=== PATIENT | female | born 1990 | race Hispanic/Latino ===

== ENCOUNTER 2017-10-26 12:03 | Emergency (ER) | payer MEDICAID ==
[2017-10-26] MEDS ORDERED: MARCAINE 0.5% INFILTRATI ONE (17:26)
[2017-10-26] MEDS ORDERED: MOTRIN PO ONE (17:27)
[2017-10-26] MEDS ORDERED: BOOSTRIX IM ONE (17:27)
[2017-10-26] MEDS ORDERED: CLEOCIN IM ONE (17:29)
--- NOTE | 2017-10-26 17:36 | Emergency Department Report ---
Abscess Boil HPI - HPI Chief Complaint: Skin/Abscess/Foreign Body Stated Complaint: NECK PAIN Time Seen by Provider: 10/26/17 16:31 Duration: 3 Days Location: Other (posterior neck region) History: Yes Pain, No Fever, No Purulent Drainage, No Numbness, No Foreign Body , No Previous History, No Insect Bite HPI: This is a 27-year-old female nontoxic, well nourished in appearance, no acute signs of distress presents to the ED with c/o of abscess and redness to the right posterior neck region. Patient stated it stated small and became bigger over 3 days. Patient denies any stiff neck, nausea, vomiting, headache, chest pain, shortness of breathe, blurry vision, numbness or tingling. Patient denies any drug allergies or PMH. Denies any trauma. Patient stated is not up to date with tetanus. Home Medications: Previous Rx's Medication Instructions Recorded Last Taken Type Hydrocodone Bit/Acetaminophen 1 each PO Q8H PRN #20 tablet 08/25/13 Unknown Rx [Lortab 7.5-500 mg] Amoxicillin [Trimox CAP] 500 mg PO Q8H #30 capsule 01/29/14 Unknown Rx HYDROcodone/APAP 7.5-325 [[place] 1 each PO Q6HR PRN #14 tablet 01/29/14 Unknown Rx 7.5-325 mg TAB] Cyclobenzaprine [Flexeril 10mg] 10 mg PO TID PRN #30 tablet 04/07/15 Unknown Rx HYDROcodone/APAP 5-325 [[place] 1 each PO Q6HR PRN #20 tablet 04/07/15 Unknown Rx 5/325] Ibuprofen [Motrin 800 MG tab] 800 mg PO TID PRN #50 tablet 04/07/15 Unknown Rx Clindamycin [Clindamycin CAP] 300 mg PO Q8H 7 Days cap 10/26/17 Unknown Rx traMADol [Ultram] 50 mg PO Q6HR PRN #12 tablet 10/26/17 Unknown Rx Allergies/Adverse Reactions: Allergies Allergy/AdvReac Type Severity Reaction Status Date / Time Fish Containing Products Allergy Itching Verified 10/26/17 12:10 ED Review of Systems ROS: Stated complaint: NECK PAIN Other details as noted in HPI Constitutional: denies: chills, fever Eyes: denies: eye pain, eye discharge, vision change ENT: denies: ear pain, throat pain Respiratory: denies: cough, shortness of breath, wheezing Cardiovascular: denies: chest pain, palpitations Endocrine: no symptoms reported Gastrointestinal: denies: abdominal pain, nausea, diarrhea Genitourinary: denies: urgency, dysuria, discharge Musculoskeletal: denies: back pain, joint swelling, arthralgia Skin: denies: rash, lesions Neurological: denies: headache, weakness, paresthesias Psychiatric: denies: anxiety, depression Hematological/Lymphatic: denies: easy bleeding, easy bruising ED Past Medical Hx - Past Medical History Previous Medical History?: No Additional medical history: Gall bladder disease - Surgical History Past Surgical History?: No - Social History Smoking Status: Never Smoker Substance Use Type: Alcohol, Marijuana - Medications Home Medications: Home Medications Medication Instructions Recorded Confirmed Last Taken Type Hydrocodone Bit/Acetaminophen 1 each PO Q8H PRN #20 tablet 08/25/13 Unknown Rx [Lortab 7.5-500 mg] Amoxicillin [Trimox CAP] 500 mg PO Q8H #30 capsule 01/29/14 Unknown Rx HYDROcodone/APAP 7.5-325 [[place] 1 each PO Q6HR PRN #14 tablet 01/29/14 Unknown Rx 7.5-325 mg TAB] Cyclobenzaprine [Flexeril 10mg] 10 mg PO TID PRN #30 tablet 04/07/15 Unknown Rx HYDROcodone/APAP 5-325 [[place] 1 each PO Q6HR PRN #20 tablet 04/07/15 Unknown Rx 5/325] Ibuprofen [Motrin 800 MG tab] 800 mg PO TID PRN #50 tablet 04/07/15 Unknown Rx Clindamycin [Clindamycin CAP] 300 mg PO Q8H 7 Days cap 10/26/17 Unknown Rx traMADol [Ultram] 50 mg PO Q6HR PRN #12 tablet 10/26/17 Unknown Rx ED Abscess Boil Physical Exam - Exam General: Vital signs noted. No distress. Alert and acting appropriately. GENERAL: The patient is a well-developed, well-nourished in no apparent distress. Patient is alert and acting appropriately for age. Alert and oriented 3, no apparent distress, normal gait, atraumatic. HEENT: Head is normocephalic and atraumatic. PERRL, Extraocular muscles are intact. Pupils are equal, round, and reactive to light and accommodation. Nares appeared normal. Mouth is well hydrated and without lesions. Mucous membranes are moist. Posterior pharynx clear of any exudate or lesions. Mouth is well hydrated and without lesions. Tonsils not erythematous or swollen. Uvula midline. Tongue elevated. Mucous members are moist. Posterior pharynx clear, no exudate or lesions. Patent airways. NECK: Supple. No carotid bruits. No lymphadenopathy or thyromegaly.nontender. No meningitic signs are noted. LUNGS: Clear to auscultation. Non labor breathing. No intercostal retractions. Symmetrical with respiration, no wheezing, no rales, or crackles. HEART: Regular rate and rhythm without murmur, rubs or gallops. No reproducible. S1, S2 present, regular rate and rhythm without murmur, no rubs, no gallops. ABDOMEN: Soft, nontender, and nondistended. Positive bowel sounds. No hepatosplenomegaly was noted. No guarding or rebound tenderness, negative epigastric bruit. Negative psoas sign, negative carroll sign, negative McBurneys sign EXTREMITIES: Without any cyanosis, clubbing, rash, lesions or edema. Peripheral pulses intact. Capillary refill less than 2 seconds. Full range of motion bilaterally. NEUROLOGIC: Cranial nerves II through XII are grossly intact. Alert and oriented x 3. Normal gait. Symmetrical strength and sensation. Reflexes 2+ throughout. Cerebellar testing normal. GCS score of 15. PSYCHIATRIC: Normal affect with no suicidal or homicidal ideations. Skin: 3 cm abscess with positive induration or fluctuance. Surrounding erythema. Tender to touch. No pus or drainage noted. Front/Back of Body, Lg (Color): 1 - abscess Size: 3 cm Exam: Yes Tenderness, Yes Fluctuance, Yes Surrounding Cellulites/Erythema, Yes Normal Neurologic Exam, Yes Normal Circulation, No Lymphangitis, No Crepitation , No Heart Murmur I & D Note - I & D Note I & D Note: Under sterile field, I used Betadine to cleanse the area. I then used 0.5% Marcaine with 25-gauge 5/8 needle to inject area for anesthetic purposes. Total volume injected 3 mL. I then used an 11 blade to make a 1 cm incision. About 2 mL's of purulent drainage has been noted. I then used a hemostat to break the abscess formation. I then used sterile 0.9% normal saline flush to flush the wound with total volume of 40 mL used. I then put a 1 /4 iodoform packing to the incision. A sterile 4 x 4 with tape has been applied as dressing. Bleeding is under control. Patient tolerated the procedure well with no signs of distress noted. ED Course Vital Signs 10/26/17 12:10 Temperature 98 F Pulse Rate 93 H Respiratory 20 Rate Blood Pressure 138/82 O2 Sat by Pulse 97 Oximetry - Reevaluation(s) Reevaluation #1: 10/26/17 17:34 Patient is speaking in full sentences with no signs of distress noted. Critical care attestation.: If time is entered above; I have spent that time in minutes in the direct care of this critically ill patient, excluding procedure time. ED Medical Decision Making - Medical Decision Making This is a 27-year-old female that presents with abscess. PAtient is stable and was examined by me. Incision and drainage has been performed and patient tolerated well with no signs of distress. One fourth packing has been placed and patient was instructed to return in 2 days for reassessment and packing removal. Patient received a dose of 600 milligrams clindamycin IM due to the region site of the abscess. Patient is discharged with clinda. Patient was instructed Follow-up with a primary care doctor in 3-5 days or if symptoms worsen and continue return to emergency room as soon as possible. At time time of discharge, the patient does not seem toxic or ill in appearance. No acute signs of distress noted. Patient agrees to discharge treatment plan of care. No further questions noted by the patient. ED Disposition Clinical Impression: Abscess, Encounter for incision and drainage procedure Disposition: TO HOME OR SELFCARE Is pt being admited?: No Does the pt Need Aspirin: No Condition: Stable Instructions: Clindamycin (By mouth), Tramadol (By mouth), Abscess (ED), Incision and Drainage (ED) Additional Instructions: Follow-up with a primary care doctor in 3-5 days or if symptoms worsen and continue return to emergency room as soon as possible. Return in 2 days for packing removal and reassessment of the abscess. Do not operate any machinery while taking Ultram due to drowsiness. Prescriptions: Clindamycin [Clindamycin CAP] 300 mg PO Q8H 7 Days cap traMADol [Ultram] 50 mg PO Q6HR PRN #12 tablet PRN Reason: Pain Referrals: PRIMARY CARE, [Primary Care Provider] - 3-5 Days [facility]KER MD [Staff Physician] - 3-5 Days [facility] [Outside] - 3-5 Days [facility] [Outside] - 3-5 Days Forms: Work/School Release Form(ED)
[2017-10-26 18:34] VITALS: BP 122/68
== END 2017-10-26 18:35 | disposition home or self-care (01) ==
LOC: ED 12:03
DX: L02.11 Cutaneous abscess of neck (principal); F12.10 Cannabis abuse, uncomplicated; Z91.013 Allergy to seafood
CPT/HCPCS: 90471; 90715; 96372

== ENCOUNTER 2019-01-05 00:26 | Emergency (ER) | payer SELFPAY ==
[2019-01-05 00:58] VITALS: BP 128/92
[2019-01-05 02:06] LABS: Bacteria,Urine 1+ /HPF (Negative); Bilirubin,Urine NEG (Negative); Blood,Urine NEG (Negative); Color,Urine Yellow (Yellow); Mucus,Urine FEW /HPF; Protein,Urine <15 mg/dL mg/dL (Negative); Urobilinogen,Urine < 2.0 mg/dL (<2.0)
== END 2019-01-05 05:08 | disposition left against medical advice (07) ==
LOC: ED 00:26
DX: N93.9 Abnormal uterine and vaginal bleeding, unspecified (principal); Z53.21 Procedure and treatment not carried out due to patient leaving prior to being seen by health care provider
CPT/HCPCS: 81001

== ENCOUNTER 2019-10-25 02:53 | Emergency (ER) | payer MEDICAID ==
[2019-10-25 03:01] VITALS: BP 131/89
--- NOTE | 2019-10-25 09:20 | Emergency Department Report ---
ED Recheck HPI - General Chief Complaint: Laceration/Recheck/Suture Stated Complaint: POST C SECTION W/REDNESS AND DRAINAGE INCISION Time Seen by Provider: 10/25/19 09:14 Source: patient Mode of arrival: Ambulatory Limitations: No Limitations - History of Present Illness Initial Comments: 29 yo comes to ER with concerns her csec lac is infected. She had csec at [place] 1 week ago. She is alone in ER. No fever. VSS. no tachycardia. no hypotension. She did not call her obgyn- she has been waiting in ER all night to be seen. Complaint: wound re-check -: Gradual Initial Visit For: other Returns Today for: wound recheck - Related Data Previous Rx's Medication Instructions Recorded Last Taken Type Hydrocodone Bit/Acetaminophen 1 each PO Q8H PRN #20 tablet 08/25/13 Unknown Rx [Lortab 7.5-500 mg] Amoxicillin [Trimox CAP] 500 mg PO Q8H #30 capsule 01/29/14 Unknown Rx HYDROcodone/APAP 7.5-325 [[place] 1 each PO Q6HR PRN #14 tablet 01/29/14 Unknown Rx 7.5-325 mg TAB] Cyclobenzaprine [Flexeril 10mg] 10 mg PO TID PRN #30 tablet 04/07/15 Unknown Rx HYDROcodone/APAP 5-325 [[place] 1 each PO Q6HR PRN #20 tablet 04/07/15 Unknown Rx 5/325] Ibuprofen [Motrin 800 MG tab] 800 mg PO TID PRN #50 tablet 04/07/15 Unknown Rx Clindamycin [Clindamycin CAP] 300 mg PO Q8H 7 Days cap 10/26/17 Unknown Rx traMADoL [Ultram] 50 mg PO Q6HR PRN #12 tablet 10/26/17 Unknown Rx Allergies Allergy/AdvReac Type Severity Reaction Status Date / Time Fish Containing Products Allergy Itching Verified 10/26/17 12:10 ED Review of Systems ROS: Stated complaint: POST C SECTION W/REDNESS AND DRAINAGE INCISION Other details as noted in HPI Comment: All other systems reviewed and negative ED Past Medical Hx - Past Medical History Previous Medical History?: Yes Additional medical history: Gall bladder disease - Surgical History Past Surgical History?: Yes Additional Surgical History: - Family History Family history: no significant - Social History Smoking Status: Never Smoker Substance Use Type: Marijuana - Medications Home Medications: Home Medications Medication Instructions Recorded Confirmed Last Taken Type Hydrocodone Bit/Acetaminophen 1 each PO Q8H PRN #20 tablet 08/25/13 Unknown Rx [Lortab 7.5-500 mg] Amoxicillin [Trimox CAP] 500 mg PO Q8H #30 capsule 01/29/14 Unknown Rx HYDROcodone/APAP 7.5-325 [[place] 1 each PO Q6HR PRN #14 tablet 01/29/14 Unknown Rx 7.5-325 mg TAB] Cyclobenzaprine [Flexeril 10mg] 10 mg PO TID PRN #30 tablet 04/07/15 Unknown Rx HYDROcodone/APAP 5-325 [[place] 1 each PO Q6HR PRN #20 tablet 04/07/15 Unknown Rx 5/325] Ibuprofen [Motrin 800 MG tab] 800 mg PO TID PRN #50 tablet 04/07/15 Unknown Rx Clindamycin [Clindamycin CAP] 300 mg PO Q8H 7 Days cap 10/26/17 Unknown Rx traMADoL [Ultram] 50 mg PO Q6HR PRN #12 tablet 10/26/17 Unknown Rx ED Physical Exam - General Limitations: No Limitations General appearance: alert, in no apparent distress - Head Head exam: Present: atraumatic, normocephalic - Eye Eye exam: Present: normal appearance - ENT ENT exam: Present: mucous membranes moist - Neck Neck exam: Present: normal inspection - Respiratory Respiratory exam: Present: normal lung sounds bilaterally. Absent: respiratory distress - Cardiovascular Cardiovascular Exam: Present: regular rate, normal rhythm. Absent: systolic murmur, diastolic murmur, rubs, gallop - GI/Abdominal GI/Abdominal exam: Present: soft, normal bowel sounds - Extremities Exam Extremities exam: Present: normal inspection - Back Exam Back exam: Present: normal inspection - Neurological Exam Neurological exam: Present: alert, oriented X3 - Psychiatric Psychiatric exam: Present: normal affect, normal mood - Skin Skin exam: Present: warm, dry, intact, normal color, other (csec inscision - no abscess; no cellulitis; no unusual redness; no drainage. ). Absent: rash ED Course Vital Signs 10/25/19 03:00 Temperature 98.6 F Pulse Rate 68 Respiratory 18 Rate Blood Pressure 131/89 [Right] O2 Sat by Pulse 96 Oximetry ED Recheck MDM - Core Measures Measure Exclusions: not indicated - Differential Diagnosis Wound Recheck - Medical Decision Making wound is approx 8 inch clean well approximated no abscess/cellulitis no drainage What pt is concerned about is related to her not cleaning and keep the area dry. The incision is between fat folds and is moist. Wound cleaned- dried I've instructed pt on wound care. She is being dc from ER and will follow up with her OB at [place] Vital Signs 10/25/19 03:00 Temperature 98.6 F Pulse Rate 68 Respiratory 18 Rate Blood Pressure 131/89 [Right] O2 Sat by Pulse 96 Oximetry Critical care attestation.: If time is entered above; I have spent that time in minutes in the direct care of this critically ill patient, excluding procedure time. ED Disposition Clinical Impression: Incisional pain Disposition: DC-01 TO HOME OR SELFCARE Is pt being admited?: No Does the pt Need Aspirin: No Condition: Stable Additional Instructions: KEEP CLEAN WE DISCUSSED FOLLOW UP WITH THE [facility] IN THE OFFICE CALL AND MAKE AN APPNT Referrals: PRIMARY CARE [Primary Care Provider] - 3-5 Days Time of Disposition: 09:23
== END 2019-10-25 09:44 | disposition home or self-care (01) ==
LOC: ED 02:53
DX: O90.0 Disruption of cesarean delivery wound (principal); Z79.899 Other long term (current) drug therapy; F12.10 Cannabis abuse, uncomplicated; Z91.013 Allergy to seafood
CPT/HCPCS: 99282

== ENCOUNTER 2020-08-22 05:10 | Emergency (ER) | payer MEDICAID ==
--- NOTE | 2020-08-22 08:38 | Ultrasound Report ---
ULTRASOUND OBSTETRIC INDICATION / CLINICAL INFORMATION: ABD CRAMPING. Clinical Gestational Age (GA) in weeks, days: 14 weeks 4 days TECHNIQUE: Transabdominal. COMPARISON: None available. FINDINGS: GESTATIONAL SAC: Well-defined oval shape and intrauterine in location. YOLK SAC: No significant abnormality. EMBRYO/FETUS: No significant abnormality. - [place]-Rump Length = 7.78 cm = 13 weeks, 6 days - Heart Rate, beats per minute (if present) = 155 ADNEXA: 2 adjacent simple cysts are seen in the left ovary measuring 2.9 and 2.1 cm respectively. Rig ht ovary is unremarkable. FREE FLUID: None. ADDITIONAL FINDINGS: Some is located anteriorly. There is a hypoechoic nonvascular area posterior to the placenta of uncertain clinical significance. This area measures 2.2 x 1.0 cm. IMPRESSION: 1. Single, living intrauterine with estimated sonographic age of 13 weeks, 6 days. 2. 2.2 cm hypoechoic area posterior to the placenta without associated vascularity, nonspecific in ap pearance. Small area of abruption is within the differential and close clinical follow-up is suggeste d. Line 3. 2 small left ovarian cysts. Signer Name: Keerthi Keller MD Signed: 08/22/2020 7:10 AM Workstation Name: [email or web address]
[2020-08-22 12:01] VITALS: BP 114/69
--- NOTE | 2020-08-22 12:02 | Emergency Department Report ---
ED Abdominal Pain HPI - General Chief Complaint: Abdominal Pain Stated Complaint: 12WKS PREG/CRAMPING Time Seen by Provider: 08/22/20 10:57 Source: patient Mode of arrival: Ambulatory Limitations: No Limitations - History of Present Illness Initial Comments: Patient is a 30-year-old female presents emergency room with complaints of lower abdominal pain that began last night. She describes it as a cramping sensation. She states that she has had it intermittently throughout her . She states that she is approximately 3-1/2 to 4 months . 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 She denies any dysuria, dark urine, odor to her urine, hematuria, vaginal bleeding, vaginal discharge, vaginal irritation or itching, nausea, vomiting, diarrhea, fever. She has a past medical history of cholelithiasis. No allergies to medications. /P: 3/A: 1 - Related Data Previous Rx's Medication Instructions Recorded Last Taken Type Hydrocodone Bit/Acetaminophen 1 each PO Q8H PRN #20 tablet 08/25/13 Unknown Rx [Lortab 7.5-500 mg] Amoxicillin [Trimox CAP] 500 mg PO Q8H #30 capsule 01/29/14 Unknown Rx HYDROcodone/APAP 7.5-325 [[place] 1 each PO Q6HR PRN #14 tablet 01/29/14 Unknown Rx 7.5-325 mg TAB] Cyclobenzaprine [Flexeril 10mg] 10 mg PO TID PRN #30 tablet 04/07/15 Unknown Rx HYDROcodone/APAP 5-325 [[place] 1 each PO Q6HR PRN #20 tablet 04/07/15 Unknown Rx 5/325] Ibuprofen [Motrin 800 MG tab] 800 mg PO TID PRN #50 tablet 04/07/15 Unknown Rx Clindamycin [Clindamycin CAP] 300 mg PO Q8H 7 Days cap 10/26/17 Unknown Rx traMADoL [Ultram] 50 mg PO Q6HR PRN #12 tablet 10/26/17 Unknown Rx Acetaminophen [Tylenol] 500 mg PO Q6HR PRN #30 tablet 04/15/20 Unknown Rx Allergies Allergy/AdvReac Type Severity Reaction Status Date / Time Fish Containing Products Allergy Itching Verified 04/15/20 06:23 ED Review of Systems ROS: Stated complaint: 12WKS PREG/CRAMPING Other details as noted in HPI Comment: All other systems reviewed and negative ED Past Medical Hx - Past Medical History Previous Medical History?: Yes Additional medical history: Gall bladder disease - Surgical History Past Surgical History?: Yes Additional Surgical History: - Social History Smoking Status: Never Smoker Substance Use Type: None - Medications Home Medications: Home Medications Medication Instructions Recorded Confirmed Last Taken Type Hydrocodone Bit/Acetaminophen 1 each PO Q8H PRN #20 tablet 08/25/13 Unknown Rx [Lortab 7.5-500 mg] Amoxicillin [Trimox CAP] 500 mg PO Q8H #30 capsule 01/29/14 Unknown Rx HYDROcodone/APAP 7.5-325 [[place] 1 each PO Q6HR PRN #14 tablet 01/29/14 Unknown Rx 7.5-325 mg TAB] Cyclobenzaprine [Flexeril 10mg] 10 mg PO TID PRN #30 tablet 04/07/15 Unknown Rx HYDROcodone/APAP 5-325 [[place] 1 each PO Q6HR PRN #20 tablet 04/07/15 Unknown Rx 5/325] Ibuprofen [Motrin 800 MG tab] 800 mg PO TID PRN #50 tablet 04/07/15 Unknown Rx Clindamycin [Clindamycin CAP] 300 mg PO Q8H 7 Days cap 10/26/17 Unknown Rx traMADoL [Ultram] 50 mg PO Q6HR PRN #12 tablet 10/26/17 Unknown Rx Acetaminophen [Tylenol] 500 mg PO Q6HR PRN #30 tablet 04/15/20 Unknown Rx ED Physical Exam - General Limitations: No Limitations General appearance: alert, in no apparent distress - Head Head exam: Present: atraumatic, normocephalic - Eye Eye exam: Present: normal appearance - ENT ENT exam: Present: mucous membranes moist - Respiratory Respiratory exam: Present: normal lung sounds bilaterally. Absent: respiratory distress, wheezes, rales, rhonchi, stridor, chest wall tenderness, accessory muscle use, decreased breath sounds, prolonged expiratory - Cardiovascular Cardiovascular Exam: Present: regular rate, normal rhythm, normal heart sounds. Absent: systolic murmur, diastolic murmur, rubs, gallop - GI/Abdominal GI/Abdominal exam: Present: soft, normal bowel sounds. Absent: distended, tenderness, guarding, rebound, rigid - Neurological Exam Neurological exam: Present: alert, oriented X3 - Psychiatric Psychiatric exam: Present: normal affect, normal mood - Skin Skin exam: Present: warm, dry, intact ED Course Vital Signs 08/22/20 06:16 Temperature 98.0 F Pulse Rate 90 Respiratory 18 Rate Blood Pressure 114/69 O2 Sat by Pulse 94 Oximetry ED Medical Decision Making - Lab Data Result diagrams: 08/22/20 12:29 08/22/20 12:29 Lab Results 08/22/20 08/22/20 08/22/20 Range/Units 11:36 12:29 12:29 WBC 8.4 (4.5-11.0) K/mm3 RBC 4.33 (3.65-5.03) M/mm3 Hgb 11.7 (10.1-14.3) gm/dl Hct 35.4 (30.3-42.9) % MCV 82 (79-97) fl MCH 27 L (28-32) pg MCHC 33 (30-34) % RDW 21.0 H (13.2-15.2) % Plt Count 211 (140-440) K/mm3 Lymph % (Auto) 16.8 (13.4-35.0) % Faulk % (Auto) 6.2 (0.0-7.3) % Eos % (Auto) 0.3 (0.0-4.3) % Baso % (Auto) 0.4 (0.0-1.8) % Lymph # (Auto) 1.4 (1.2-5.4) K/mm3 Faulk # (Auto) 0.5 (0.0-0.8) K/mm3 Eos # (Auto) 0.0 (0.0-0.4) K/mm3 Baso # (Auto) 0.0 (0.0-0.1) K/mm3 Seg Neutrophils % 76.3 H (40.0-70.0) % Seg Neutrophils # 6.4 (1.8-7.7) K/mm3 Sodium 136 L (137-145) mmol/L Potassium 4.2 (3.6-5.0) mmol/L Chloride 103.4 (98-107) mmol/L Carbon Dioxide 22 (22-30) mmol/L Anion Gap 15 mmol/L BUN 6 L (7-17) mg/dL Creatinine 0.6 (0.6-1.2) mg/dL Estimated GFR > 60 ml/min BUN/Creatinine Ratio 10 % Glucose 87 (65-100) mg/dL Calcium 9.2 (8.4-10.2) mg/dL Total Bilirubin 0.40 (0.1-1.2) mg/dL AST 12 (5-40) units/L ALT 8 (7-56) units/L Alkaline Phosphatase 43 (35-129) units/L Total Protein 6.5 (6.3-8.2) g/dL Albumin 3.9 (3.9-5) g/dL Albumin/Globulin Ratio 1.5 % Lipase 18 (13-60) units/L Urine Color Yellow (Yellow) Urine Turbidity Slightly-cloudy (Clear) Urine pH 5.0 (5.0-7.0) Ur Specific Manson 1.019 (1.003-1.030) Urine Protein <15 mg/dl (Negative) mg/dL Urine Glucose (UA) Neg (Negative) mg/dL Urine Ketones 20 (Negative) mg/dL Urine Blood Neg (Negative) Urine Nitrite Neg (Negative) Urine Bilirubin Neg (Negative) Urine Urobilinogen < 2.0 (<2.0) mg/dL Ur Leukocyte Esterase Mod (Negative) Urine WBC (Auto) 4.0 (0.0-6.0) /HPF Urine RBC (Auto) 5.0 (0.0-6.0) /HPF U Epithel Cells (Auto) 9.0 (0-13.0) /HPF Urine Bacteria (Auto) 1+ (Negative) /HPF Urine Mucus 2+ /HPF - Radiology Data Radiology results: report reviewed ULTRASOUND OBSTETRIC INDICATION / CLINICAL INFORMATION: ABD CRAMPING. Clinical Gestational Age (GA) in weeks, days: 14 weeks 4 days TECHNIQUE: Transabdominal. COMPARISON: None available. FINDINGS: GESTATIONAL SAC: Well-defined oval shape and intrauterine in location. YOLK SAC: No significant abnormality. EMBRYO/FETUS: No significant abnormality. - Norco-Rump Length = 7.78 cm = 13 weeks, 6 days - Heart Rate, beats per minute (if present) = 155 ADNEXA: 2 adjacent simple cysts are seen in the left ovary measuring 2.9 and 2.1 cm respectively. Right ovary is unremarkable. FREE FLUID: None. ADDITIONAL FINDINGS: Some is located anteriorly. There is a hypoechoic nonvascular area posterior to the placenta of uncertain clinical significance. This area measures 2.2 x 1.0 cm. IMPRESSION: 1. Single, living intrauterine with estimated sonographic age of 13 weeks, 6 days. 2. 2.2 cm hypoechoic area posterior to the placenta without associated vascularity, nonspecific in appearance. Small area of abruption is within the differential and close clinical follow-up is suggested. Line 3. 2 small left ovarian cysts. Signer Name: Keerthi Keller MD Signed: 08/22/2020 7:10 AM Workstation Name: [id number] Transcribed By: Dictated By: Keerthi Keller MD Electronically Authenticated By: Keerthi Keller MD Signed Date/Time: 08/22/20709 DD/ 5 TD/TT: - Medical Decision Making Patient is a 30-year-old female presents emergency room with complaints of lower abdominal pain that began last night. She describes it as a cramping sensation. She states that she has had it intermittently throughout her . She states that she is approximately 3-1/2 to 4 months . She states that her FARM MECHANIC is at [facility]. She denies any dysuria, dark urine, odor to her urine, hematuria, vaginal bleeding, vaginal discharge, vaginal irritation or itching, nausea, vomiting, diarrhea, fever. She has a past medical history of cholelithiasis. No allergies to medications. /P: 3/A: 1. VSS. on exam: no abd ttp, no guarding, no rebound, no rigidity, normal bowel sounds. labs are normal. UA is stable. pt is Rh+ based on previous labs. OB US: 1. Single, living intrauterine with estimated sonographic age of 13 weeks, 6 days. 2. 2.2 cm hypoechoic area posterior to the placenta without associated vascularity, nonspecific in appearance. Small area of abruption is within the differential and close clinical follow-up is suggested. Line 3. 2 small left ovarian cysts. Discussed all results with patient and discussed the importance of very close FARM [employer]IC follow-up. Patient given her ultrasound report advised her to take it to her FARM MECHANIC. She states that she already has an appointment scheduled for 08/26/2020. advised pt May take Tylenol as needed for any discomfort. Increase your water intake. practice pelvic rest. Follow-up with your FARM MECHANIC within the next 2 to 3 days for reexamination. Take your ultrasound report with you to your FARM MECHANIC. Return to emergency room for any new or worsening symptoms. - Differential Diagnosis IUP, ectopic, UTI, placenta previa/abruption, ovarian cyst, subchorionic he Critical care attestation.: If time is entered above; I have spent that time in minutes in the direct care of this critically ill patient, excluding procedure time. ED Disposition Clinical Impression: Suprapubic abdominal pain, Placental abruption in second trimester Qualifiers: Weeks of gestation: 13 weeks Qualified Code(s): Z3A.13 - 13 weeks gestation of Disposition: - TO HOME OR SELFCARE Is pt being admited?: No Does the pt Need Aspirin: No Condition: Stable Instructions: Abdominal Pain During , Placental Abruption, Abdominal Pain (ED) Additional Instructions: May take Tylenol as needed for any discomfort. Increase your water intake. practice pelvic rest. Follow-up with your FARM MECHANIC within the next 2 to 3 days for reexamination. Take your ultrasound report with you to your FARM MECHANIC. Return to emergency room for any new or worsening symptoms. Referrals: [facility]IMARY [facility] [Primary Care Provider] - 2-3 Days [facility] [Provider Group] - 2-3 Days Time of Disposition: 13:41 Print Language: ITALIAN
[2020-08-22 12:27] LABS: Bacteria,Urine 1+ /HPF (Negative); Bilirubin,Urine NEG (Negative); Blood,Urine NEG (Negative); Color,Urine Yellow (Yellow); Mucus,Urine 2+ /HPF; Protein,Urine <15 mg/dL mg/dL (Negative); Urobilinogen,Urine < 2.0 mg/dL (<2.0)
[2020-08-22 13:02] LABS: Basophils % (Auto) 0.4 % (0.0-1.8); Eosinophils % (Auto) 0.3 % (0.0-4.3); Hematocrit 35.4 % (30.3-42.9); Hemoglobin 11.7 gm/dl (10.1-14.3); Lymphocytes # (Auto) 1.4 K/mm3 (1.2-5.4); Lymphocytes % (Auto) 16.8 % (13.4-35.0); Mean Corpuscular HGB Conc 33 % (30-34); Mean Corpuscular Volume 82 fl (79-97); Monocytes # (Auto) 0.5 K/mm3 (0.0-0.8); Monocytes % (Auto) 6.2 % (0.0-7.3); Platelet Count 211 K/mm3 (140-440); Red Blood Count 4.33 M/mm3 (3.65-5.03)
[2020-08-22 13:11] LABS: Alanine Aminotransferase 8 units/L (7-56); Albumin 3.9 g/dL (3.9-5); Blood Urea Nitrogen 6 mg/dL (7-17); Calcium 9.2 mg/dL (8.4-10.2); Hemolysis Index 3
[2020-08-22 13:25] LABS: BUN/Creatinine Ratio 10
== END 2020-08-22 14:10 | disposition home or self-care (01) ==
LOC: ED 05:10
DX: O26.891 Other specified pregnancy related conditions, first trimester (principal); R10.2 Pelvic and perineal pain; O00-O9A Pregnancy, childbirth and the puerperium; Z3A.13 13 weeks gestation of pregnancy
CPT/HCPCS: 36415; 76801; 80053; 81001; 83690; 85025

== ENCOUNTER 2021-07-04 12:20 | Day surgery (SDC) | payer MEDICAID ==
--- NOTE | 2021-07-02 16:53 | History and Physical Report ---
History of Present Illness Date of examination: 07/02/21 Chief complaint: moderate dysplasia History of present illness: 31-year-old with a history of index HSIL Pap presenting for surgical management for DEANGELO-2 on colposcopy. Past History Past Medical History: no pertinent history Past Surgical History: section (x2), other (back injections) [employer]ATOR History: abnormal PAP smear Family/Genetic History: none Social history: no significant social history - Obstetrical History : 5 Para: 4 Hx # Term Pregnancies: 4 Spontaneous Abortions: 1 Number of Living Children: 4 Medications and Allergies Allergies Allergy/AdvReac Type Severity Reaction Status Date / Time Fish Containing Products Allergy Itching Verified 04/15/20 06:23 Home Medications Medication Instructions Recorded Confirmed Last Taken Type No Known Home Medications [No 06/30/21 06/30/21 Unknown History Reported Home Medications] Review of Systems All systems: negative (expect HPI) - Physical Exam Cardiovascular: Regular rate Lungs: Positive: Clear to auscultation, Normal air movement Abdomen: Positive: normal appearance Results All other labs normal. Assessment and Plan - Patient Problems (1) Moderate dysplasia of cervix (DEANGELO II) Status: Acute Plan to address problem: To OR for loop electrosurgical excision procedure for CIN2 --Consent in the chart Questions solicited and answered --Anticipate discharge home from PACU
[~2021-07-04 12:20] MED LIST: ACETIC ACID 3% SOLN 60 ML TP ONE; FERRIC SUBSULFATE TOPICAL SOLN 8 ML TP ONE; POTASSIUM IODIDE/IODINE (LUGOLS) 30 ML TP ONE
--- NOTE | 2021-07-04 12:49 | Anesthesia Consultation ---
Anesthesia Consult and Med Hx Date of service: 07/04/21 - Airway Anesthetic Teeth Evaluation: Poor (front top tooth is black), Chipped ROM Head & Neck: Adequate Mental/Hyoid Distance: Adequate Mallampati Class: Class II Intubation Access Assessment: Good - Pulmonary Exam CTA: Yes - Cardiac Exam Cardiac Exam: RRR - Pre-Operative Health Status ASA Pre-Surgery Classification: ASA2 Proposed Anesthetic Plan: General - Pulmonary Hx Smoking: Yes (CIGARS) Hx Sleep Apnea: No (SNORES) - Cardiovascular System Hx Hypertension: No Hx Heart Attack/AMI: No - Central Nervous System Hx Back Pain: Yes Hx Psychiatric Problems: No - Endocrine Hx End Stage Renal Disease: No - Hematic Hx Anemia: Yes Hx Sickle Cell Disease: No - Other Systems Hx Alcohol Use: Yes (VODKA 1 OR 2 / WEEK) Hx Substance Use: No Hx Cancer: No
--- NOTE | 2021-07-04 12:50 | Anesthesia Day of Surgery ---
Anesthesia Day of Surgery - Day of Surgery Patient Examined: Yes Patient H&P Reviewed: Yes Patient is NPO: Yes
[2021-07-04] MEDS ORDERED: MIDAZOLAM 2 MG/2 ML INJ IV NR (13:00)
[2021-07-04] MEDS ORDERED: LACTATED RINGERS 1,000 ML IV SCH (13:00)
[2021-07-04] MEDS ORDERED: propofoL 200 MG/20 ML VIAL IV ONE (13:29)
[2021-07-04] MEDS ORDERED: LIDOCAINE MPF (2%) 20 MG/1 ML VIAL 5 ML ONE (13:30)
[2021-07-04] MEDS ORDERED: fentaNYL 100 MCG/2 ML INJ ONE (13:30)
[2021-07-04 13:44] LABS: Basophils % (Auto) 0.3 % (0.0-1.8); Eosinophils # (Auto) 0.1 K/mm3 (0.0-0.4); Eosinophils % (Auto) 0.9 % (0.0-4.3); Hematocrit 37.3 % (30.3-42.9); Hemoglobin 12.2 gm/dl (10.1-14.3); Lymphocytes # (Auto) 1.9 K/mm3 (1.2-5.4); Lymphocytes % (Auto) 22.1 % (13.4-35.0); Mean Corpuscular HGB Conc 33 % (30-34); Mean Corpuscular Volume 81 fl (79-97); Monocytes # (Auto) 0.6 K/mm3 (0.0-0.8); Monocytes % (Auto) 6.6 % (0.0-7.3); Platelet Count 240 K/mm3 (140-440); Red Blood Count 4.63 M/mm3 (3.65-5.03); Red Cell Distribution Width 18.3 % (13.2-15.2)
[2021-07-04] MEDS ORDERED: POTASSIUM IODIDE/IODINE (LUGOLS) 30 ML TP ONE (14:10)
[2021-07-04] MEDS ORDERED: SODIUM CHLORIDE 0.9% IRR 1,000 ML BOTTLE IR ONE (14:11)
[2021-07-04] MEDS ORDERED: LACTATED RINGERS 1,000 ML ONE (14:27)
[2021-07-04] MEDS ORDERED: dexAMETHasone 20 MG/5 ML VIAL ONE (14:29)
[2021-07-04] MEDS ORDERED: KETOROLAC 30 MG/1 ML INJ ONE (14:30)
[2021-07-04] MEDS ORDERED: ONDANSETRON 4 MG/2 ML INJ ONE (14:30)
[2021-07-04] MEDS ORDERED: FERRIC SUBSULFATE TOPICAL SOLN 8 ML TP ONE (14:36)
[2021-07-04] MEDS ORDERED: oxyCODONE /ACETAMINOPHEN 5-325MG TAB PO PRN (14:44)
[2021-07-04] MEDS ORDERED: IBUPROFEN 600 MG TAB PO PRN (14:44)
--- NOTE | 2021-07-04 14:48 | Procedure Note ---
Date of procedure: 07/04/21 Pre-op diagnosis: moderate dysplasia CIN2 Post-op diagnosis: same Procedure: Preoperative diagnosis: Biopsy-proven cervical intraepithelial neoplasia (DEANGELO) 2 Postop postoperative diagnosis: Same Operation performed: 1. Exam under anesthesia 2. Loop electrosurgical excision procedure Surgeon: Heather Marino MD Estimated blood loss 600cc Intraoperative IV fluids 1200 Urine output 25cc Pathology specimens: 1. Anterior cervix marked at 12 2. Posterior cervix marked at 12 Complications: none Disposition and condition: To the PACU in stable condition then discharged home Findings: 1. Small anteverted mobile uterus without any adnexal masses on EUA 2. Grossly normal-appearing cervix Statement medical necessity: This is a 31-year-old G 5 P 4 A1 patient, with a history of HSIL pap smear followed by suspected satisfactory colposcopy and biopsy proven 2. The procedural risk, benefits, indications and alternatives were thoroughly reviewed patient and she desired to proceed with surgical management. Description of operation: After obtaining informed consent the patient was taken to the operating room where satisfactory general endotracheal anesthesia was established. The patient was placed in the standard lithotomy position using Benito stirrups, ensuring proper positioning and cushioning to avoid injury. Exam under anesthesia was performed with the findings noted above. Straight catheterization of the bladder was performed. Patient was prepped and draped in the usual sterile fashion. Coated sidewall retractors were inserted into the anterior and posterior vaginal fornix to assist with visualization of the cervix. The cervix and upper vagina were coated with the Lugol's iodine and inspected for nonstaining areas. The entire transformation zone was visualized and there was a small circumferential nonstaining area around the cervical os. A LEEP was completed with a 20x12 mm loop electrode in two passes, anterior and posterior cervix. An endocervical curettage was not subsequently performed given cervical bed bleeding. All specimens were sent to pathology. The biopsy site was rendered hemostatic with Bovie electrocautery with a 1 and 3 mm electrosurgical ball electrode and Monsel's solution was applied to the ex cisional base. The retractors were removed. The patient was returned to dorsal supine position. The patient tolerated procedure well, was extubated without difficulty and transferred to recovery in good condition. Sponge, needle and instrument counts are correct x2. There is no surgical or anesthetic complications. Anesthesia: GETA Surgeon: HEATHER MARINO JR Estimated blood loss: other (600cc) IV fluids: 1,200 Urine output: 25 Pathology: list (1. anterior cervix marked at 12, 2. Posterior cervix marked at 12) Specimen disposition: to lab Condition: stable Disposition: same day
[2021-07-04] MEDS ORDERED: HYDROmorphone 1 MG/1 ML INJ IV PRN ×2 (15:29)
[2021-07-04] MEDS ORDERED: HYDROmorphone 1 MG/1 ML INJ ONE (15:35)
--- NOTE | 2021-07-04 16:37 | Post Anesthesia Evaluation ---
- Post Anesthesia Evaluation Patient Participated: Yes Airway Patent: Yes Stable Respiratory Function: Yes Nausea/Vomiting: No Temp > 96.8F: Yes Pain Manageable: Yes Adequeate Hydration: Yes Anesthesia Complications: No Block Receding Appropriately: Not Applicable Patient on Ventilator: No
[2021-07-04 18:00] VITALS: BP 133/76
== END 2021-07-04 17:00 | disposition home or self-care (01) ==
LOC: OR 12:20
PROVIDERS: ATTEND Obstetrics & Gynecology
DX: N87.1 Moderate cervical dysplasia (principal); K21.9 Gastro-esophageal reflux disease without esophagitis; F17.210 Nicotine dependence, cigarettes, uncomplicated; Z79.899 Other long term (current) drug therapy; Z98.890 Other specified postprocedural states; Z20.822 Contact with and (suspected) exposure to COVID-19
CPT/HCPCS: 36415; 57522; 81025; 85025; 86850; 86900; 86901; 88305; J1100; J1170; J1885; J2250; J2405; J2704; J3010; J7120; U0003; 88307